=== PATIENT | female | born 1985 | race Two or more races ===

== ENCOUNTER 2020-07-26 07:27 | Emergency (ER) | payer OTHER ==
[~2020-07-26] VITALS: Ht 177.8 cm; Wt 83.9 kg
== END 2020-07-26 14:13 | disposition home or self-care (01) ==
LOC: ER 07:27
DX: R10.84 Generalized abdominal pain (principal); R19.7 Diarrhea, unspecified; K52.89 Other specified noninfective gastroenteritis and colitis

== ENCOUNTER 2020-09-02 09:10 | Emergency (ER) | payer OTHER ==
[~2020-09-02] VITALS: Ht 177.8 cm; Wt 81.6 kg
[2020-09-02] MEDS ORDERED: SKELAGESIC PO (12:47)
== END 2020-09-02 13:18 | disposition home or self-care (01) ==
LOC: ER 09:10
DX: M25.571 Pain in right ankle and joints of right foot (principal); G89.11 Acute pain due to trauma